=== PATIENT | male | born 1955 | race Caucasian/White ===

== ENCOUNTER 2016-10-17 10:27 | Inpatient (IN) ==
[2016-10-17] MEDS ORDERED: DUONEB (A & A) INH ONE (11:15)
[2016-10-17] MEDS ORDERED: SOLU-MEDROL IV ONE (11:15)
[2016-10-17 11:26] LABS: MANUAL DIFF NEEDED? NO
--- NOTE | 2016-10-17 11:28 | ED EKG INTERP ---
EKG Interpretation - EKG Time of EKG reading by physician:: 10:44 EKG Read and Signed by:: Elroy Galvez EKG Interpretation (*Must complete 3 of following elements*): Abnormal Rate: 102 (septal infarct, age undetermined; marked T wave abnormality, consider anterolateral ischemia; Prolonged QT) Rhythm: sinus tachycardia Attestation - Scribe Verification/Attestation Scribe:: Dilia Khan Acting as Scribe for:: Elroy Galvez Scribe documention review:: This chart was documented by a scribe and accurately reflects the service the provider performed and the decisions made by the provider.
[2016-10-17 11:32] LABS: BASO% 0.6 % (0.0-0.8); EOS# 0.02 X1000 (0.0-0.7); EOS% 0.2 % (0.0-10.0); HEMATOCRIT 40.3 % (42.0-52.0); HEMOGLOBIN 12.8 g/dL (14.0-18.0); IMM GRAN# 0.04 X1000 (0.0-0.04); IMM GRAN% 0.4 % (0.0-0.5); LYMPH# 1.47 X1000 (1.2-3.4); LYMPH% 16.4 % (20.5-51.1); MCH 27.4 PG (27-31); MCHC 31.8 g/dL (33-37); MCV 86.1 FL (81-99); MONO# 1.32 X1000 (0.11-0.59); MONO% 14.7 % (1.7-9.3); MPV 9.5 FL (7.4-10.4); NEUT% 67.7 % (42.2-75.2); PLT 413 X1000 (130-400); RBC 4.68 XMIL (4.7-6.1)
[2016-10-17 11:41] LABS: INR 1.02; PROTIME 10.8 Seconds (9.2-11.7); PTT 27.3 Seconds (22.0-36.0)
--- NOTE | 2016-10-17 11:56 | PROVIDER DOCUMENTATION ---
HPI-Respiratory General - General Chief Complaint: Shortness of Breath Stated Complaint: SHORT OF BREATH Time Seen by Provider: 10/17/16 11:02 Allergies/Adverse Reactions: Patient Allergies Allergy/AdvReac Type Severity Reaction Status Date / Time NSAIDS (Non-Steroidal Allergy Severe ABDOMINAL Verified 10/02/15 13:11 Anti-Inflamma PAIN Home Medications: Home Medication List Medication Instructions Recorded Confirmed Last Taken Type Omeprazole 40 mg PO QAM 07/01/15 10/17/16 10/17/16 09:00 History Ipratropium/Albuterol Sulfate 1 inh INH TID 10/17/16 10/17/16 10/17/16 09:00 History [Iprat-Albut 0.5-3(2.5) mg/3 ml] - History of Present Illness-Resp Nature of Presenting Problem: A 60 y/o M with PMH of COPD presented with 1 week of progressive cough and SOB, tried home inhalers with little help, no exertional dyspnes no PND and orthopnea, subjective fevers. Severity in ED: reports: mild Onset/Duration: reports: 1 week ago Timing: reports: still present Context: denies: recent foreign travel, insect bite (possible tick) Exposure: reports: unknown cause Cough Quality/Degree: reports: mild, dry cough Episode Frequency: chronic episodes Current Respiratory Medication Therapy: Initiated see nurses note Modifying Factors: improves with: albuterol inhaler, coughing, deep breath Associated Symptoms: reports: fever/chills, short of breath Similar Symptoms Previously?: Yes Recently seen or treated by another doctor?: No Review of Systems - Adult - REVIEW OF SYSTEMS - ADULT Constitutional: reports: no symptoms reported Eyes: reports: no symptoms reported Ears, Nose, Mouth & Throat: reports: no symptoms reported Cardiovascular: reports: no symptoms reported Respiratory: reports: no symptoms reported Gastrointestinal: reports: no symptoms reported Genitourinary: reports: no symptoms reported Musculoskeletal: reports: no symptoms reported Integumentary: reports: no symptoms reported Neurological: reports: no symptoms reported Psychiatric: reports: no symptoms reported Endocrine: reports: no symptoms reported Hematologic/Lymphatic: reports: no symptoms reported Allergic/Immunologic: reports: no symptoms reported All Other Systems: Reviewed and Negative Past History - Adult - PAST MEDICAL HISTORY-ADULT Review of Records: reports: Old Records Reviewed, Nursing Assessment Review, Medications Reviewed, Social history reviewed & non-contributory. Major Childhood Illnesses: reports: denies history Cardiovascular: reports: HTN Respiratory: reports: COPD Gastrointestinal: reports: denies history Obstetrical/Gynecological: reports: denies history Genitourinary: reports: denies history Musculoskeletal: reports: orthopedic injury (dislocated shoulder, 12/01/14) Neurological: reports: denies history Endocrine/Immune: reports: denies history Other Conditions: reports: denies history - PRIOR SURGERIES/PROCEDURES Surgical/Procedure History: reports: orthopedic (extremity) (right leg, left shoulder) - PRIOR HOSPITALIZATIONS Prior Hospitalizations: reports: none - IMMUNIZATION STATUS Childhood Immunizations: See Nurse Assessment Flu Vaccine: See Nurse Assessment - FAMILY HISTORY Family History: reviewed, not pertinent Physical Exam-General - PHYSICAL EXAM-ADULT Initial Vital Signs Reviewed: Yes - CONSTITUTIONAL General Appearance: appears well, alert, no apparent distress - EYES Eyes: PERRL/EOMI, pink conjunctivae, fundi clear, no AV nicking - HEAD, EARS, NOSE, MOUTH & THROAT HENMT: normocephalic/atraumatic, moist mucous membranes - NECK Neck: non-tender, full range of motion - RESPIRATORY Respiratory: chest non-tender, no pleuratic chest pain, no respiratory distress , rales, wheezing. 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05 PT 10.8 INR 1.02 PTT (Actin FS) 27.3 Sodium 137 Potassium 3.6 Chloride 94 L Carbon Dioxide 27 Anion Gap 16 BUN 8 Creatinine 0.8 Estimated GFR/1.73 m2 > 60 BUN/Creatinine Ratio 10 Glucose 121 H Calculated Osmolality 273 Calcium 8.7 L Magnesium 1.5 Total Bilirubin 0.53 AST 32 ALT 15 Alkaline Phosphatase 118 Creatine Kinase 367 H Creatine Kinase Index 1.3 CK-MB (CK-2) 4.70 Troponin T Gtq-K-Hadpjdpygmy Pept Total Protein 7.2 Albumin 3.2 L Globulin 4.0 Albumin/Globulin Ratio 0.8 10/17/16 10/17/16 11:00 11:00 WBC RBC Hgb Hct MCV MCH MCHC RDW Std Deviation Plt Count MPV Immature Gran % (Auto) Neut % (Auto) Lymph % (Auto) [place] % (Auto) Eos % (Auto) Baso % (Auto) Immature Gran # (Auto) Neut # (Auto) Lymph # (Auto) [place] # (Auto) Eos # (Auto) Baso # (Auto) PT INR PTT (Actin FS) Sodium Potassium Chloride Carbon Dioxide Anion Gap BUN Creatinine Estimated GFR/1.73 m2 BUN/Creatinine Ratio Glucose Calculated Osmolality Calcium Magnesium Total Bilirubin AST ALT Alkaline Phosphatase Creatine Kinase Creatine Kinase Index CK-MB (CK-2) Troponin T 0.086 Uae-C-Skflswhdwzq Pept 7467 H Total Protein Albumin Globulin Albumin/Globulin Ratio Orders Category Date Time Status Cardiac Monitoring DIRECTED Care 10/17/16 11:14 Active Saline Loc NOW Care 10/17/16 11:14 Active CHEST-2 VIEWS [RAD] Stat Exams 10/17/16 11:14 Taken CBC WITH ELECTRONIC DIFF [HEME] Stat Lab 10/17/16 11:00 Completed CK PROFILE [SP CHEM] Stat Lab 10/17/16 11:00 Completed COMPREHENSIVE METABOLIC PANEL [CHEM] Stat Lab 10/17/16 11:00 Completed MAGNESIUM [CHEM] Stat Lab 10/17/16 11:00 Completed PRO B-NATRIURETIC PEPTIDE Stat Lab 10/17/16 11:00 Completed PROTIME WITH INR [COAG] Stat Lab 10/17/16 11:00 Completed PTT [COAG] Stat Lab 10/17/16 11:00 Completed TROPONIN T Stat Lab 10/17/16 11:00 Completed Albuterol 2.5MG/Ipratrop 0.5MG [Duoneb (A & A)] Med 10/17/16 11:15 Discontinued 3 ml INH NOW ONE Furosemide [Lasix] Med 10/17/16 12:59 Discontinued 40 mg IV NOW ONE Methylprednisolone Sod Succ [Solu-Medrol] Med 10/17/16 11:15 Discontinued 125 mg IV NOW ONE Aerosol Treatments Routine Oth 10/17/16 11:15 Completed Aerosol Treatments Stat Oth 10/17/16 11:15 Completed EKG [EKG] Stat Ther 10/17/16 11:14 Ordered Vital Signs Temp Pulse Resp BP Pulse Ox 10/17/16 12:31 87 14 93/54 91 L 10/17/16 12:09 90 21 10/17/16 10:37 97.8 F 110 H 22 116/73 96 NSAIDS (Non-Steroidal Anti-Inflamma Allergy (Severe, Verified 10/02/15 13:11) ABDOMINAL PAIN SEVERE ABDOMINAL PAIN Omeprazole 40 mg PO QAM 07/01/15 Ipratropium/Albuterol Sulfate [Iprat-Albut 0.5-3(2.5) mg/3 ml] 1 inh INH TID Laboratory 10/17/16 10/17/16 10/17/16 11:00 11:00 11:00 WBC RBC Hgb Hct MCV MCH MCHC RDW Std Deviation Plt Count MPV Immature Gran % (Auto) Neut % (Auto) Lymph % (Auto) [place] % (Auto) Eos % (Auto) Baso % (Auto) Immature Gran # (Auto) Neut # (Auto) Lymph # (Auto) [place] # (Auto) Eos # (Auto) Baso # (Auto) PT 10.8 INR 1.02 PTT (Actin FS) 27.3 Sodium Potassium Chloride Carbon Dioxide Anion Gap BUN Creatinine Estimated GFR/1.73 m2 BUN/Creatinine Ratio Glucose Calculated Osmolality Calcium Magnesium Total Bilirubin AST ALT Alkaline Phosphatase Creatine Kinase Creatine Kinase Index CK-MB (CK-2) Troponin T 0.086 Wxn-B-Yknrdlwavex Pept 7467 H Total Protein Albumin Globulin Albumin/Globulin Ratio 10/17/16 10/17/16 11:00 11:00 WBC 8.96 RBC 4.68 L Hgb 12.8 L Hct 40.3 L MCV 86.1 MCH 27.4 MCHC 31.8 L RDW Std Deviation 19.5 H Plt Count 413 H MPV 9.5 Immature Gran % (Auto) 0.4 Neut % (Auto) 67.7 Lymph % (Auto) 16.4 L [place] % (Auto) 14.7 H Eos % (Auto) 0.2 Baso % (Auto) 0.6 Immature Gran # (Auto) 0.04 Neut # (Auto) 6.06 Lymph # (Auto) 1.47 [place] # (Auto) 1.32 H Eos # (Auto) 0.02 Baso # (Auto) 0.05 PT INR PTT (Actin FS) Sodium 137 Potassium 3.6 Chloride 94 L Carbon Dioxide 27 Anion Gap 16 BUN 8 Creatinine 0.8 Estimated GFR/1.73 m2 > 60 BUN/Creatinine Ratio 10 Glucose 121 H Calculated Osmolality 273 Calcium 8.7 L Magnesium 1.5 Total Bilirubin 0.53 AST 32 ALT 15 Alkaline Phosphatase 118 Creatine Kinase 367 H Creatine Kinase Index 1.3 CK-MB (CK-2) 4.70 Troponin T Bmv-A-Vomsoodezuo Pept Total Protein 7.2 Albumin 3.2 L Globulin 4.0 Albumin/Globulin Ratio 0.8 - EKG 1 EKG Interpretation (*Must complete 3 of following elements*): Abnormal Comments: sinus tachycardia, T inversion in antlateral leads - XRAY 1 XRAY Study: Chest (chronic changes and mild vascular congestion) Impression: See EMR Report - CONSULTS/PCP/HOSPITALIST Notification #1 *Consult/PCP/Hospitalist*: Dr Aguirre Time Discussed: 13:06 Consult Disposition: Admit Departure - Departure Time of Disposition Order: 13:06 DIAGNOSIS: Abnormal EKG, COPD exacerbation CHF exacerbation Qualifiers: Congestive heart failure type: unspecified congestive heart failure type Qualified Code(s): I50.9 - Heart failure, unspecified Disposition: ADMITTED INPATIENT 09 Certified Medical Emergency: Emergent Condition: Fair - Critical Care Note Comments: Pt has antlateral changes on EKG and progressive SOB with elevated BNP given lasix along with duoneb and solumedrol fro underlying COPD, admit for further evalaution
[2016-10-17 12:06] LABS: AGAP 16; ALBUMIN 3.2 g/dL (3.5-5.0); ALKALINE PHOSPHATASE 118 U/L (32-122); BUN 8 mg/dL (8-22); CALCIUM 8.7 mg/dL (8.8-10.2); CHLORIDE 94 mmol/L (98-107); COSMO 273; GOT 32 U/L (10-34); GPT 15 U/L (10-44); MAGNESIUM 1.5 mg/dL (1.5-2.7); POTASSIUM 3.6 mmol/L (3.5-5.1); SODIUM 137 mmol/L (136-145); TCO2 27 mmol/L (25-35); TOTAL BILIRUBIN 0.53 mg/dL (0.20-1.00); TOTAL PROTEIN 7.2 g/dL (6.3-8.3)
[2016-10-17 12:09] LABS: CK PROFILE 367 U/L (24-204)
[2016-10-17 12:29] LABS: CK INDEX 1.3 (0.0-2.5)
[2016-10-17] MEDS ORDERED: LASIX IV ONE (12:59)
--- NOTE | 2016-10-17 13:23 | Diag Imaging Result Document ---
PROCEDURE NAME: CHEST-2 VIEWS - 10/17/2016 2 VIEWS OF THE CHEST: FINDINGS: There is COPD and some scattered granulomata are present bilaterally. The lungs are not as well expanded as on 09/02/2016. There is increased density in the right apex which is somewhat diffuse and was also apparently present at the time of the previous study. There is an ill-defined opacity with bronchiectasis in this area on the previous CT of the chest dated 03/27/2015. IMPRESSION: COPD, chronic granulomatous changes and fibrosis. No evidence of acute disease.
[2016-10-17] MEDS ORDERED: SOLU-MEDROL IV SCH (14:15)
[2016-10-17] MEDS ORDERED: MAGNESIUM SULFATE 2 GM/S.W.I. 50 ML IV ONE (14:19)
[2016-10-17] MEDS ORDERED: ATIVAN IV PRN (14:20)
[2016-10-17] MEDS: NICODERM PATCH TD SCH (14:30)
[2016-10-17 15:02] LABS: ALLEN TEST NO; BLOOD TYPE ARTERIAL; DRAW SITE R BRACHIAL; METHB 1.5 % (0.0-1.5); O2(CT) 16.6 mL/dL (15.0-23.0); PCO2(98.6) 32 mmHg (35-45); PO2(98.6) 60 mmHg (60-100); SAMPLE BLOOD; SAO2 93.1 % (95.0-100.0); THB 13.2 g/dL (11.5-17.4); pH(98.6) 7.51 (7.35-7.45)
[2016-10-17 15:03] LABS: MODALITY ROOM AIR
[2016-10-17] MEDS: DUONEB (A & A) INH SCH ×3 (15:07→22:56)
[2016-10-17 15:10] LABS: HEMOGLOBIN A1C 5.7 % (4.8-6.0)
[2016-10-17] MEDS: LEVAQUIN 750 MG/D5W 150 ML IV SCH (15:22)
[2016-10-17] MEDS: TESSALON PO SCH (16:05)
[2016-10-17 18:15] LABS: CK INDEX 1.3 (0.0-2.5); CK-MB 4.55 ng/mL (0.0-5.0)
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
[2016-10-17] MEDS: MUCOMYST 20% INH SCH (19:29)
[2016-10-17] MEDS: SOLU-MEDROL IV SCH (20:07)
[2016-10-18 00:06] LABS: CK INDEX 1.4 (0.0-2.5); CK-MB 4.52 ng/mL (0.0-5.0)
[2016-10-18] MEDS: SOLU-MEDROL IV SCH ×3 (03:12→20:17)
[2016-10-18] MEDS: DUONEB (A & A) INH SCH ×6 (03:29→22:41)
[2016-10-18] MEDS: PROTONIX IV SCH (06:10)
[2016-10-18] MEDS: SODIUM CHLORIDE 0.9% INJ SCH (06:10)
[2016-10-18 07:07] LABS: HEMATOCRIT 34.3 % (42.0-52.0); HEMOGLOBIN 11.1 g/dL (14.0-18.0); MCH 27.5 PG (27-31); MCHC 32.4 g/dL (33-37); MCV 85.1 FL (81-99); MPV 9.9 FL (7.4-10.4); RBC 4.03 XMIL (4.7-6.1)
[2016-10-18 07:20] LABS: AGAP 12; BUN 12 mg/dL (8-22); CALCIUM 8.2 mg/dL (8.8-10.2); CHLORIDE 95 mmol/L (98-107); COSMO 271; MAGNESIUM 1.9 mg/dL (1.5-2.7); POTASSIUM 3.3 mmol/L (3.5-5.1); SODIUM 133 mmol/L (136-145); TCO2 26 mmol/L (25-35)
[2016-10-18] MEDS: NICODERM PATCH TD SCH (08:05)
[2016-10-18] MEDS: LOVENOX SUBQ SCH (08:06)
[2016-10-18] MEDS: TESSALON PO SCH ×3 (08:06→17:16)
[2016-10-18] MEDS: MUCOMYST 20% INH SCH ×2 (08:50→19:22)
[2016-10-18] MEDS ORDERED: KLOR-CON PO ONE (09:00)
[2016-10-18] MEDS: ROBITUSSIN-DM PO PRN ×3 (13:42→23:12)
--- NOTE | 2016-10-18 14:26 | PROGRESS NOTE ---
DATE: 10/18/2016 SUBJECTIVE: The patient states that he did not sleep well last night but otherwise has no other complaints. OBJECTIVE: Vital Signs: Temperature 98.1 degrees, blood pressure 141/82, heart rate 82, respirations 20, O2 saturation is 97% on 2 L nasal cannula. General: This is an elderly male, lying in bed, in no acute distress. Head: Normocephalic, atraumatic. Heart: S1, S2. Normal. Regular rate and rhythm. Lungs: Mild expiratory wheezes bilaterally. No crackles. No rales. Abdomen: Positive bowel sounds. Soft, nontender, nondistended. Extremities: No edema. No cyanosis. No calf tenderness. Peripheral pulses palpable. Neurologic: The patient is alert and oriented x3. No focal neurologic deficits noted. LABS: White blood cell count 10, hemoglobin 11, hematocrit 34, platelets 401, 000. Sodium 133, potassium 3.3, chloride 95, CO2 26, BUN 12, creatinine 0.7, glucose 195, calcium 8.2, magnesium 1.9. ASSESSMENT AND PLAN: 1. Acute chronic obstructive pulmonary disease exacerbation. Continue on IV steroids, bronchodilator therapy, and antibiotic therapy. 2. Tobacco dependence. The patient has been counseled about smoking cessation. Continue on the NicoDerm patch. 3. Hypokalemia. Will replace the patient's potassium. 4. Alcohol abuse. Monitor for alcohol withdrawal. prn ativan is available. 5. Deep vein thrombosis prophylaxis. Continue on Lovenox. 6. Will consult physical therapy. [facility]
[2016-10-18] MEDS: LEVAQUIN 750 MG/D5W 150 ML IV SCH (15:29)
[2016-10-18] MEDS: AMBIEN PO SCH (20:17)
[2016-10-18] MEDS ORDERED: VANCOMYCIN IV PER PHARMACY MISC SCH (21:45)
[2016-10-18] MEDS ORDERED: VANCOMYCIN 2 GM in NS 500 ML IV ONE (23:00)
[2016-10-19] MEDS: SOLU-MEDROL IV SCH ×3 (02:59→21:06)
[2016-10-19] MEDS: DUONEB (A & A) INH SCH ×5 (03:21→23:09)
[2016-10-19] MEDS: PROTONIX IV SCH (06:14)
[2016-10-19] MEDS: SODIUM CHLORIDE 0.9% INJ SCH (06:14)
[2016-10-19 07:12] LABS: HEMATOCRIT 35.3 % (42.0-52.0); HEMOGLOBIN 11.2 g/dL (14.0-18.0); MCH 27.2 PG (27-31); MCHC 31.7 g/dL (33-37); MCV 85.7 FL (81-99); MPV 9.8 FL (7.4-10.4); RBC 4.12 XMIL (4.7-6.1)
[2016-10-19 07:25] LABS: AGAP 13; BUN 12 mg/dL (8-22); CALCIUM 8.8 mg/dL (8.8-10.2); CHLORIDE 96 mmol/L (98-107); COSMO 273; POTASSIUM 3.9 mmol/L (3.5-5.1); SODIUM 135 mmol/L (136-145); TCO2 26 mmol/L (25-35)
--- NOTE | 2016-10-19 07:47 | EKG Report ---
Test Performed on : 10/17/2016 10:44:29 AM Test Reason : Chest Pain Blood Pressure : / mmHG Vent. Rate : 102 BPM Atrial Rate : 102 BPM P-R Int : 130 ms QRS Dur : 076 ms QT Int : 406 ms P-R-T Axes : 081 018 127 degrees QTc Int : 529 ms Sinus tachycardia. Septal infarct , age undetermined Marked T wave abnormality, consider anterolateral ischemia Prolonged QT Abnormal ECG When compared with ECG of 01-DEC-2014 00:41, QRS duration has decreased T wave inversion now evident in Anterolateral leads Unconfirmed Result
[2016-10-19] MEDS: LOVENOX SUBQ SCH (09:08)
[2016-10-19] MEDS: NICODERM PATCH TD SCH (09:08)
[2016-10-19] MEDS: TESSALON PO SCH ×3 (09:08→21:06)
[2016-10-19] MEDS: ROBITUSSIN-DM PO PRN ×3 (09:10→23:16)
[2016-10-19] MEDS: MUCOMYST 20% INH SCH ×2 (09:32→20:08)
[2016-10-19] MEDS: VANCOMYCIN 1,600 MG in NS 250 ML IV SCH (12:06)
[2016-10-19] MEDS: LEVAQUIN 750 MG/D5W 150 ML IV SCH (14:51)
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
[2016-10-19] MEDS: AMBIEN PO SCH (21:06)
[2016-10-20] MEDS: VANCOMYCIN 1,600 MG in NS 250 ML IV SCH ×2 (00:27→13:39)
[2016-10-20] MEDS: DUONEB (A & A) INH SCH ×6 (03:12→23:26)
[2016-10-20] MEDS: SOLU-MEDROL IV SCH ×3 (03:38→18:25)
[2016-10-20] MEDS: SODIUM CHLORIDE 0.9% INJ SCH (06:01)
[2016-10-20] MEDS: PROTONIX IV SCH (06:01)
[2016-10-20 07:48] LABS: AGAP 13; BUN 13 mg/dL (8-22); CALCIUM 8.3 mg/dL (8.8-10.2); CHLORIDE 99 mmol/L (98-107); COSMO 276; POTASSIUM 3.9 mmol/L (3.5-5.1); SODIUM 137 mmol/L (136-145); TCO2 25 mmol/L (25-35)
[2016-10-20] MEDS: MUCOMYST 20% INH SCH ×2 (08:22→19:39)
[2016-10-20] MEDS: TESSALON PO SCH ×3 (09:15→16:11)
[2016-10-20] MEDS: LOVENOX SUBQ SCH (09:15)
[2016-10-20] MEDS: NICODERM PATCH TD SCH (09:15)
--- NOTE | 2016-10-20 13:39 | PROGRESS NOTE ---
DATE: 10/20/2016 SUBJECTIVE: Mr. Mullen states he feels better. His breathing seems to be a little better. However, when I walked in the room, he was in a coughing spell, he choked on a little bit of Jell- O. In talking to him further, he has had some trouble with swallowing. He does not feel like his breathing is back to baseline, but it has improved. I do not hear any wheezing and no increased work of breathing at the present time. He just finished eating his lunch and was eating this Jell- O when I came in. OBJECTIVE: Vital Signs: Temperature 97.6. Pulse 80, respirations 22, blood pressure 149/96. Lungs: Are clear anterolateral. Cardiovascular: Regular rhythm and rate without murmur or S3. Abdomen: Soft. Skin: Warm and dry. : Good urine output. LABS: Reviewed from yesterday. ASSESSMENT AND PLAN: 1. Acute on chronic obstructive pulmonary disease exacerbation. Continue steroids, bronchodilator, antibiotic treatment at this time. 2. Tobacco dependence. He is on a nicotine patch. 3. Hypokalemia, supplemented. 4. History of alcohol abuse. Not looking for signs of alcohol withdrawal. We will be vigilant to look for that. 5. Deep vein prophylaxis. 6. He is complaining of dysphagia. We will see if we can get Gastroenterology to evaluate. Looking at his orders, I do not see anything to change at this point. He is on vancomycin, methylprednisone, Levaquin. I think we can probably stop his vancomycin.
[2016-10-20] MEDS: LEVAQUIN 750 MG/D5W 150 ML IV SCH (13:42)
--- NOTE | 2016-10-20 13:52 | Diag Imaging Result Document ---
PROCEDURE NAME: CT THORAX W/O CONTRAST - 10/17/2016 CT OF THE CHEST WITHOUT CONTRAST: COMPARISON: The current study is compared with that of 03/27/2015. FINDINGS: There is some increase in size of a node in the AP window which in short axis dimension is almost 8 mm in diameter compared to 5 mm previously. There is a 17 mm subcarinal node which has increased from 12 mm previously. There are calcified nodes in both radha. There is extensive coronary calcification. There is a large hiatal hernia. There are very small pleural fluid collections bilaterally. This was not previously present. There are fibrotic and bronchiectatic changes present anteriorly in the right upper lobe which were also present at the time of the previous study. There is some ill-defined opacity posteriorly in the right upper lobe which was not previously present. There is ill-defined opacity throughout much of the superior segment of the right lower lobe. There are patchy ill-defined opacities in both lower lobes more inferiorly. Most of this was not present at the time of the previous study. There is an area of poorly defined opacity posteriorly and laterally in the left upper lobe which was not previously present. There are scattered calcified granulomata. There are generalized emphysematous changes. IMPRESSION: Patchy pneumonia superimposed on fibrotic and emphysematous changes.
[2016-10-20] MEDS: AMBIEN PO SCH (21:09)
[2016-10-21] MEDS: SOLU-MEDROL IV SCH ×4 (03:04→17:00)
[2016-10-21] MEDS: DUONEB (A & A) INH SCH ×3 (03:41→11:35)
[2016-10-21] MEDS: CARAFATE LIQUID PO SCH ×5 (05:13→21:28)
[2016-10-21] MEDS: SODIUM CHLORIDE 0.9% INJ SCH (06:23)
[2016-10-21] MEDS: PROTONIX IV SCH (06:23)
[2016-10-21] MEDS: MUCOMYST 20% INH SCH (08:24)
[2016-10-21] MEDS: ICAR-C PO SCH ×2 (11:09→21:28)
[2016-10-21] MEDS: NICODERM PATCH TD SCH (11:09)
[2016-10-21] MEDS: LOVENOX SUBQ SCH (11:09)
[2016-10-21] MEDS: TESSALON PO SCH ×3 (11:10→16:59)
[2016-10-21] MEDS ORDERED: MYLICON DROPS (DOSE) MISC ONE (12:38)
[2016-10-21] MEDS: CARDIZEM IV ONE ×4 (13:17→15:37)
[2016-10-21] MEDS: CARDIZEM 100 MG/NS 100 ML IV SCH ×2 (13:51→18:19)
--- NOTE | 2016-10-21 13:57 | EKG Report ---
Test Performed on : 10/21/2016 1:35:03 PM Test Reason : EKG CHANGE Blood Pressure : / mmHG Vent. Rate : 115 BPM Atrial Rate : 113 BPM P-R Int : 000 ms QRS Dur : 078 ms QT Int : 290 ms P-R-T Axes : 000 034 025 degrees QTc Int : 401 ms Atrial fibrillation. with rapid ventricular response. Abnormal ECG When compared with ECG of 17-OCT-2016 10:44, Atrial fibrillation. has replaced Sinus rhythm. Criteria for Septal infarct are no longer present T wave inversion less evident in Anterolateral leads Confirmed by Leroy CHAVEZ, Ang Blanco ([id number]) on 10/23/2016 5:20:23 PM
--- NOTE | 2016-10-21 15:14 | OPERATIVE NOTE ---
PROCEDURE DATE: 10/21/2016 ADMITTING PHYSICIAN: Dr. Nikita Hagen, hospitalist. PROCEDURE: Esophagogastroduodenoscopy with esophageal dilation. PREOPERATIVE DIAGNOSES: 1. Dysphagia. 2. History of alcoholism. Continues to drink 6 beers a day, at least. 3. Chronic smoker. 4. Severe chronic obstructive pulmonary disease. Admitted with chronic obstructive pulmonary disease exacerbation and shortness of breath. 5. Mild anemia. 6. Reflux disease. 7. Noncompliance. POSTOPERATIVE DIAGNOSES: 1. Food in the mid and distal esophagus, which was partly suctioned out and partly pushed into the stomach body. 2. Ring noted at the distal esophagus.Dilated 54 [address] Dilator 3. Small hiatal hernia noted. 4. Food in the stomach noted, suggesting gastroparesis. 5. Mild gastritis. 6. Gastroparesis. 7. No evidence of pyloric obstruction or pyloric stenosis. 8. Normal duodenal bulb and 2nd portion. ESTIMATED BLOOD LOSS: None. COMPLICATIONS: 1. Transient hypoxemia requiring assisted ventilation, with full recovery. 2. Tachycardia, persistent, rate in 140s to 180s. Likely supraventricular tachycardia. Will need a Cardiology consultation. SPECIMEN: None. DESCRIPTION OF PROCEDURE: After informed consent from the patient, explaining the risks, benefits, indications, and alternatives, the patient was prepared for EGD. The risks of the procedure included infection, bleeding, pain, trauma to the surrounding structures, perforation, and were explained to the patient, among others, and he acknowledged understanding and agreed to proceed. The patient was brought to the OR and turned into the left lateral position. A bite block was placed. After adequate anesthesia care, the upper scope was introduced and advanced all the way to the 2nd portion of the duodenum. The esophagus was normal in the proximal third. The middle and distal thirds showed evidence of food debris, which was partly suctioned out and partly pushed into the stomach. There was evidence of a Schatzki ring at the GE junction. There was a small hiatal hernia measuring about 2 cm. The scope was then advanced into the stomach, which showed evidence of retained food in the stomach, and small to moderate amount of gastroparesis. The scope was advanced to the antrum, which showed evidence of mild gastritis. Retroflexion showed evidence of food in the stomach fundus and cardia and body and could not clearly see the area. The scope was then advanced into the bulb and 2nd portion of the duodenum, which appeared normal. The scope was withdrawn. At that time, we were suctioning the contents and the patient became hypoxemic and I pulled the scope out. At that time, the patient underwent assisted ventilation to help improve his oxygen saturations. He was noted to be tachycardic at that time. At that time, he had full recovery. Then we did dilation to 54 [place] of the Schatzki ring. Further, I performed a repeat EGD to evaluate the GE junction and there was still some small amount of food in the stomach as well as a small amount of food in the esophagus, which was pushed into the stomach. At that time, again the patient became hypoxemic and so we suctioned the air out and removed the scope. The patient underwent assisted ventilation and some management of tachycardia. The patient tolerated the procedure and is currently being taken to the PACU for recovery. RECOMMENDATIONS: 1. The patient will be on liquid diet for today. 2. Will call Cardiology consultation. 3. We will keep him on Protonix once daily for 3 months. 4. Patient was counseled to quit alcohol and smoking completely. 5. The patient should avoid any NSAIDs. 6. The patient will take small frequent meals. 7. We will start him on Reglan 5 mg QAC and QHS at bedtime and hold for side effects like tardive dyskinesia. 8. The patient will follow up with us in the clinic as needed. 9. We will keep him on bowel regimen as well. 10. Above plan was discussed with the patient and all questions were answered. [facility]
[2016-10-21] MEDS: LEVAQUIN 750 MG/D5W 150 ML IV SCH (15:28)
[2016-10-21] MEDS: CENTRUM SILVER PO SCH (15:37)
[2016-10-21 16:47] LABS: AGAP 17; BUN 13 mg/dL (8-22); CALCIUM 8.8 mg/dL (8.8-10.2); CHLORIDE 96 mmol/L (98-107); COSMO 280; MAGNESIUM 1.9 mg/dL (1.5-2.7); POTASSIUM 3.9 mmol/L (3.5-5.1); SODIUM 138 mmol/L (136-145); TCO2 25 mmol/L (25-35)
[2016-10-21] MEDS: REGLAN LIQUID PO SCH ×2 (16:59→21:28)
[2016-10-21] MEDS: LANOXIN IV SCH ×2 (16:59→21:28)
[2016-10-21] MEDS: MIRALAX PO SCH (17:00)
--- NOTE | 2016-10-21 17:15 | CONSULTATION ---
DATE OF CONSULTATION: 10/21/2016 REQUESTING PHYSICIAN: Shen Sotelo MD; Gastroenterology REASON FOR CONSULTATION: Tachycardia, atrial fibrillation with rapid response. HISTORY: Mr. Mullen is a 60-year-old male who was admitted to the hospital on October 17 because of increased dyspnea. He was initially diagnosed as having COPD exacerbation. Subsequently he reported dysphagia and difficulty swallowing. They consulted Dr. Sotelo from gastroenterology who took him to the endoscopy suite today, October 21. During the procedure, he encountered difficulty with the patient's oxygenation. They had to bag the patient and eventually he developed significant tachycardia which turned out to be atrial fibrillation with rapid response. They requested a consultation. EKG done at 1:35 p.m. shows atrial fibrillation, rapid response with a rate of 115 beats per minute. Initial EKG done at the time of admission to the hospital showed that he had been in sinus rhythm. The patient at the time of the procedure was found to have food in the mid and distal esophagus which was partly suctioned out and partly pushed into the stomach body. He had a ring noted at the distal esophagus. He had a small hiatal hernia, gastroparesis, normal duodenal bulb and second portion. They have given some instructions as to what to do with these findings. The patient at the time of my evaluation which is about 4 p.m. is eating already, Jell-O and some broth. He is feeling fine. He has no complaints. He says he does not have any history of heart disease. He does acknowledge having a history of COPD for some time and he has been followed at some point by Dr. Arroyo from pulmonary. PAST MEDICAL HISTORY: Negative for any cardiovascular condition that he is aware of. He has been taking some omeprazole and he has been using some inhaler at home. PAST SURGICAL HISTORY: Negative. FAMILY HISTORY: Noncontributory. SOCIAL HISTORY: He lives with a friend. He is not . He has no children. From previous records, they reported he has been homeless for some time. The patient smokes a little over a pack of cigarettes per day and he drinks about 6 beers a day. ALLERGIES: He has no allergies. REVIEW OF SYSTEMS: He has no issues with his balance, no falls. No previous heart disease. No other major issues. PHYSICAL EXAMINATION: Blood pressure is 126/84, temperature 97.5, pulse 93, respirations 16. The patient is awake, alert and in no distress. He is eating his food. HEENT: Unremarkable. Chest shows diffuse diminished breath sounds. I do not hear any wheezes. Heart sounds are irregularly/irregular. No gallop or murmur noted. Abdomen: Nontender. Soft. No hepatosplenomegaly. Extremities shows very good distal pulses. There is no peripheral edema. Neurologic: He moves all 4 extremities. LABORATORY DATA: Blood work; we do not have any lab work from today. I suspect they have ordered some. EKG done this afternoon shows atrial fibrillation with rapid response. No acute ischemic changes. At the time of initial presentation, they had done cardiac enzymes. The CPKs were 367, 364 and 326. The cardiac index for those 3 CPKs were negative at 1.3 and 1.4. He has had several troponins; 0.086, 0.075 and 0.048. Of note, his initial potassium was 3.6 and 3.3. His first EKG done in the hospital showed some T wave abnormalities across the precordial leads, raising concern for ischemia. IMPRESSION: 1. The patient developing atrial fibrillation with rapid response during a gastroenterology procedure with documented hypoxemia. Patient has underlying severe chronic obstructive pulmonary disease. 2. Question of coronary heart disease. 3. Long-term smoking. 4. Long-term alcohol user. RECOMMENDATIONS: We will keep the patient on Cardizem overnight. We will consider doing an echocardiogram in the morning. Further intervention will depend on his clinical course. At this point in time is very comfortable. He is eating and he seems to be in no distress whatsoever. Thank you for the opportunity to participate in his evaluation.
[2016-10-21] MEDS ORDERED: XYLOCAINE-MPF 2% ONE (17:31)
[2016-10-21] MEDS: AMBIEN PO SCH (21:31)
[2016-10-21] MEDS: DULCOLAX PR SCH (21:35)
[2016-10-22] MEDS: MUCOMYST 20% INH SCH ×3 (02:17→19:51)
[2016-10-22] MEDS: SOLU-MEDROL IV SCH ×2 (02:48→14:49)
[2016-10-22] MEDS: CARAFATE LIQUID PO SCH ×4 (02:48→20:04)
[2016-10-22] MEDS: LANOXIN IV SCH ×2 (04:38→10:02)
--- NOTE | 2016-10-22 07:01 | EKG Report ---
Test Performed on : 10/22/2016 06:50:24 AM Test Reason : atrial fibrillation Blood Pressure : / mmHG Vent. Rate : 095 BPM Atrial Rate : 075 BPM P-R Int : 000 ms QRS Dur : 078 ms QT Int : 394 ms P-R-T Axes : 000 026 -42 degrees QTc Int : 495 ms Atrial fibrillation. with premature ventricular or aberrantly conducted complexes. ST & T wave abnormality, consider anterior ischemia Prolonged QT Abnormal ECG When compared with ECG of 21-OCT-2016 13:35, (Unconfirmed) Nonspecific T wave abnormality now evident in Inferior leads T wave inversion more evident in Anterior leads Confirmed by Leroy CHAVEZ, Ang Blanco ([id number]) on 10/23/2016 5:22:19 PM
[2016-10-22 07:18] LABS: MANUAL DIFF NEEDED? NO
--- NOTE | 2016-10-22 07:28 | PROGRESS NOTE ---
DATE: 10/22/2016 SUBJECTIVE: Was resting comfortably. His monitor shows he still in atrial fibrillation. Breathing comfortably. OBJECTIVE: Vital signs: He remains afebrile. Temperature 97.8 degrees, pulse 97, respirations 22, blood pressure 131/79. Weight 172 pounds. Yesterday his weight was 160, so I question that. Intake and output: Urine output was over a liter. LAB: I reviewed electrolytes and CBC from yesterday. Will recheck those again today. ASSESSMENT AND PLAN: 1. The patient developed atrial fibrillation, rapid response during EGD. Had esophageal dilatation which was mild. Also has some gastroparesis. 2. Chronic obstructive pulmonary disease exacerbation which has improved. Air and gas exchange improving. Note the rate is controlled with atrial fibrillation and may have to explore whether we need to try and cardiovert him. 3. Long-term smoker, chronic obstructive pulmonary disease. 4. Long-term alcohol use. 5. Gastroparesis and esophageal stricture. He reported he was swallowing much better and feels much better. REVIEW OF HIS ORDERS: I do not see any change at this point. He is on Cardizem drip. Getting Reglan 5 mg p.o. q.a.c. and at bedtime, Carafate 1 g q.6 hours, methylprednisone 40 mg IV q.8 which I think we can cut that down to q.12. He is on Levaquin 750 mg IV q.24 hours and I think we can stop that.
[2016-10-22 07:31] LABS: BASO% 0.1 % (0.0-0.8); EOS# 0.01 X1000 (0.0-0.7); EOS% 0.1 % (0.0-10.0); HEMATOCRIT 37.2 % (42.0-52.0); HEMOGLOBIN 11.8 g/dL (14.0-18.0); IMM GRAN# 0.11 X1000 (0.0-0.04); IMM GRAN% 1.5 % (0.0-0.5); LYMPH# 0.63 X1000 (1.2-3.4); LYMPH% 8.4 % (20.5-51.1); MCH 27.3 PG (27-31); MCHC 31.7 g/dL (33-37); MCV 86.1 FL (81-99); MONO# 0.91 X1000 (0.11-0.59); MONO% 12.1 % (1.7-9.3); MPV 9.8 FL (7.4-10.4); NEUT% 77.8 % (42.2-75.2); PLT 466 X1000 (130-400); RBC 4.32 XMIL (4.7-6.1)
[2016-10-22 07:34] LABS: AGAP 15; ALBUMIN 3.1 g/dL (3.5-5.0); ALKALINE PHOSPHATASE 70 U/L (32-122); BUN 12 mg/dL (8-22); CALCIUM 8.7 mg/dL (8.8-10.2); CHLORIDE 96 mmol/L (98-107); COSMO 273; GOT 62 U/L (10-34); GPT 79 U/L (10-44); MAGNESIUM 1.9 mg/dL (1.5-2.7); POTASSIUM 4.9 mmol/L (3.5-5.1); SODIUM 136 mmol/L (136-145); TCO2 25 mmol/L (25-35)
[2016-10-22] MEDS: DUONEB (A & A) INH PRN ×3 (07:47→19:51)
[2016-10-22] MEDS: SODIUM CHLORIDE 0.9% INJ SCH (07:53)
[2016-10-22] MEDS: PROTONIX IV SCH (07:53)
[2016-10-22] MEDS: REGLAN LIQUID PO SCH ×5 (07:53→20:02)
--- NOTE | 2016-10-22 08:17 | Diag Imaging Result Document ---
PROCEDURE NAME: CHEST-PORTABLE - 10/22/2016 PORTABLE CHEST: COMPARISON: 10/17/2016. FINDINGS: The lungs are well expanded. The heart is not enlarged. The vessels are not distended. There are scattered granulomata. No pleural effusions identified. No consolidation. IMPRESSION: Stable chest.
[2016-10-22] MEDS: MIRALAX PO SCH (10:01)
[2016-10-22] MEDS: LOVENOX SUBQ SCH (10:01)
[2016-10-22] MEDS: CENTRUM SILVER PO SCH (10:01)
[2016-10-22] MEDS: ICAR-C PO SCH ×3 (10:01→20:12)
[2016-10-22] MEDS: TESSALON PO SCH ×3 (10:02→20:12)
--- NOTE | 2016-10-22 11:57 | PROGRESS NOTE ---
DATE: 10/22/2016 SUBJECTIVE: The patient is resting in bed. His swallowing is improved.Vitals: Temperature of 97 degrees, pulse rate of 95, respiratory rate 18, blood pressure 135/88, saturating 96% on nasal cannula. General Appearance: Thinly built, lying in bed, in no acute distress. HEENT: Mild pallor. No icterus. Neck: Supple. Abdomen: Soft and nontender, nondistended. Bowel sounds. Extremities: No cyanosis, clubbing. Neurologic: He is alert, awake, oriented. LABS: Hemoglobin and hematocrit 11.8, 37.2, white count of 7.5, platelet count of 466,000. Sodium 132, potassium 4.9, chloride 96, bicarb 25, anion gap of 15, BUN of 12, creatinine 0.7. Glucose of 126. Calcium is 8.7, magnesium 1.9. Total bilirubin is 0.3, AST 62, ALT 79, alkaline phosphatase is 70, total protein 6, albumin of 3.1. IMPRESSION AND PLAN: 1. Esophageal food impaction, esophageal ring small hiatal hernia and gastroparesis. We will continue him on Prilosec once daily on discharge. Will continue on Reglan 5 mg p.o. before meals and at bedtime and hold for side effects like tardive dyskinesia and the patient was also counseled to quit smoking and take small frequent meals. 2. Constipation. The patient will take MiraLAX once or twice daily. 3. COPD exacerbation, atrial fibrillation, RVR per the primary team. 4. Elevated liver enzymes. We will check hepatitis panel. 5. Above plan was discussed with the patient and all questions answered.
[2016-10-22] MEDS ORDERED: LOVENOX SUBQ ONE (12:15)
[2016-10-22 12:27] LABS: IRON SATURATION 31 %; TIBC 316 ug/dL; TOTAL IRON 97 ug/dL (53-167); UNBOUND IRON 219 ug/dL (112-346)
--- NOTE | 2016-10-22 12:29 | PROGRESS NOTE ---
DATE: 10/22/2016 CHIEF COMPLAINT: Shortness of breath, irregular heartbeat. SUBJECTIVE: Mr. Mullen feels fine. He is not having any chest pain. His breathing is getting better. Rhythm is still irregular. Rate is controlled. OBJECTIVE: Vital signs: Blood pressure is 126/74, temperature 97.4, pulse 78, respirations 15. General: He is awake, alert, follows commands. HEENT: Unremarkable. Chest: Diminished breath sounds with end-expiratory wheezes, very scattered. Cardiac: Heart sounds are irregularly irregular, no gallop or murmur. Abdomen: Nontender, soft, no masses, no hepatomegaly. Extremities: Good pulses, no edema. Neurological: Moves four extremities. BLOOD WORK: He has had 2 troponins drawn, one at 8:50 p.m. last night and one at 4:50 this morning. Both are negative. Sodium was 146, potassium 4.9, BUN and creatinine are normal. Hemoglobin 11.8, platelet count 466,000. IMAGING: His chest x-ray done today shows well-expanded lungs. IMPRESSION: 1. Patient who developed paroxysmal atrial fibrillation following GI procedure. He has advanced COPD. 2. He was admitted with COPD exacerbation. RECOMMENDATION: We will put the patient on enoxaparin 1 mg/kg twice a day and amiodarone 400 three times a day, watch him over the course of the night, and if he does not convert by tomorrow morning, we may consider proceeding with a direct current cardioversion. I explained this to the patient. He understood. He is in agreement.
[2016-10-22] MEDS ORDERED: CORDARONE PO SCH ×2 (13:00→21:00)
[2016-10-22] MEDS: CARDIZEM 100 MG/NS 100 ML IV SCH (14:48)
[2016-10-22] MEDS: AMBIEN PO SCH (20:03)
[2016-10-22] MEDS: DULCOLAX PR SCH (20:10)
[2016-10-22] MEDS ORDERED: LOVENOX SUBQ SCH (22:00)
[2016-10-23] MEDS: CARAFATE LIQUID PO SCH ×4 (01:26→19:37)
[2016-10-23] MEDS: SOLU-MEDROL IV SCH ×2 (03:45→14:50)
[2016-10-23] MEDS: ROBITUSSIN-DM PO PRN (04:04)
--- NOTE | 2016-10-23 05:55 | EKG Report ---
Test Performed on : 10/22/2016 4:07:37 PM Test Reason : Rhythm change Blood Pressure : / mmHG Vent. Rate : 071 BPM Atrial Rate : 071 BPM P-R Int : 148 ms QRS Dur : 086 ms QT Int : 432 ms P-R-T Axes : 066 025 078 degrees QTc Int : 469 ms Normal sinus rhythm. Anterior infarct , age undetermined Abnormal ECG When compared with ECG of 22-OCT-2016 06:50, (Unconfirmed) Sinus rhythm. has replaced Atrial fibrillation. Nonspecific T wave abnormality no longer evident in Inferior leads Confirmed by Leroy CHAVEZ, Ang Blanco ([id number]) on 10/23/2016 5:22:58 PM
[2016-10-23 06:05] LABS: AGAP 10; BUN 12 mg/dL (8-22); CALCIUM 8.2 mg/dL (8.8-10.2); CHLORIDE 99 mmol/L (98-107); COSMO 276; POTASSIUM 3.8 mmol/L (3.5-5.1); SODIUM 137 mmol/L (136-145); TCO2 28 mmol/L (25-35)
[2016-10-23] MEDS: SODIUM CHLORIDE 0.9% INJ SCH (06:12)
[2016-10-23] MEDS: PROTONIX IV SCH (06:12)
[2016-10-23] MEDS: REGLAN LIQUID PO SCH ×5 (06:12→19:37)
[2016-10-23] MEDS: MUCOMYST 20% INH SCH ×2 (07:21→20:14)
[2016-10-23] MEDS: DUONEB (A & A) INH PRN ×4 (07:21→20:14)
--- NOTE | 2016-10-23 07:56 | PROGRESS NOTE ---
DATE: 10/23/2016 SUBJECTIVE: Mr. Mullen did not sleep as well last night but his swallow is better. He is breathing is much better and I think he would like to go home today. OBJECTIVE: Vital Signs: Temp 97.4 degrees, pulse 85, respirations 17, blood pressure 173/87. Blood pressures have been between 126 and 173 over 84 to 96. Lungs: Clear. Anterolateral. Decreased breath sounds both bases. Cardiovascular: Regular rhythm and rate without murmur or S3. Abdomen: Soft. Skin: Warm and dry. General: Weight 172 pounds. Urine output 1300 mL. LAB: Reviewed from yesterday. CBC: Hematocrit stable. Electrolytes this morning: Sodium 137, potassium 3.8, chloride 99, bicarb 28, BUN 12, creatinine 0.7, calcium was 8.2. ASSESSMENT AND PLAN: 1. Patient developed paroxysmal atrial fibrillation following gastrointestinal procedure. He has advanced chronic obstructive pulmonary disease. 2. Advanced chronic obstructive pulmonary disease exacerbation is what he was admitted for and this is much better. We are going to need to determine whether he needs oxygen at home. The patient is on Lovenox 1 mg/kg twice a day. He is on amiodarone 400 mg 3 times a day. May consider direct current cardioversion. 3. Esophageal stricture. Recently dilated and developed paroxysmal atrial fibrillation during the procedure with rapid ventricular rate. Doing much better. 4. Review of his orders: Cordarone 400 mg t.i.d., Lovenox 80 mg subcutaneous q.12 hours, Tessalon 100 mg p.o. t.i.d., methylprednisone 40 mg IV q.12 hours, Carafate 1 g q.6 hours, Protonix 40 mg IV q.24 hours. He is on guaifenesin, Robitussin q.4 hours p.r.n.
--- NOTE | 2016-10-23 08:17 | PROGRESS NOTE ---
DATE: 10/23/2016 CHIEF COMPLAINT: Irregular heartbeat, shortness of breath. SUBJECTIVE: Mr. Mullen is complaining of right upper quadrant pain today. He has tender, hard subcutaneous tissue to palpation. He thinks that he slept on the monitor overnight and now is hurting. He received subcutaneous Lovenox yesterday. The possibility of rectus sheath hematoma cannot be ruled out. Of note, he is breathing fine, and his rhythm has converted back to sinus. OBJECTIVE: Vital signs: Blood pressure is 176/93, temperature 98.4, pulse 85, respirations 20. General: He is awake, alert. HEENT: Unremarkable. Chest: Diminished breath sounds without significant wheezing. Cardiac: Heart sounds regular and rhythmic, no gallop or murmur. Abdomen is very tender in the right upper quadrant where there is induration, firmness, tenderness, some warmth, however no obvious redness on the skin. IMPRESSION: 1. Patient who had paroxysmal atrial fibrillation, has converted to sinus rhythm. We put him on amiodarone yesterday. I am not sure if that really made the difference. However, he is back in sinus rhythm now. 2. Chronic obstructive pulmonary disease exacerbation. 3. Painful soft tissue, right upper quadrant, possible rectus sheath hematoma. RECOMMENDATION: I would get a CT of the thorax and upper abdomen to evaluate for this tender area. We will discontinue Lovenox. We will decrease amiodarone. The patient needs to be evaluated by primary service, and further intervention will depend on findings. From a cardiology viewpoint, no further intervention. The amiodarone might be discontinued within the next few days, and he needs to just follow up with his primary doctor. MTDD
[2016-10-23 08:25] LABS: BASO% 0.1 % (0.0-0.8); HEMATOCRIT 35.6 % (42.0-52.0); HEMOGLOBIN 11.2 g/dL (14.0-18.0); IMM GRAN# 0.29 X1000 (0.0-0.04); IMM GRAN% 1.4 % (0.0-0.5); LYMPH# 0.78 X1000 (1.2-3.4); LYMPH% 3.9 % (20.5-51.1); MANUAL DIFF NEEDED? YES; MCH 27.1 PG (27-31); MCHC 31.5 g/dL (33-37); MCV 86.2 FL (81-99); MONO# 2.09 X1000 (0.11-0.59); MONO% 10.4 % (1.7-9.3); MPV 10.1 FL (7.4-10.4); NEUT% 84.2 % (42.2-75.2); PLT 432 X1000 (130-400); RBC 4.13 XMIL (4.7-6.1)
[2016-10-23] MEDS: ICAR-C PO SCH ×2 (08:25→19:38)
[2016-10-23] MEDS: CORDARONE PO SCH ×2 (08:26→19:38)
[2016-10-23] MEDS: MIRALAX PO SCH (08:26)
[2016-10-23] MEDS: TESSALON PO SCH ×3 (08:26→19:38)
[2016-10-23] MEDS: CENTRUM SILVER PO SCH (08:26)
[2016-10-23 08:35] LABS: LYMPHS 8 % (21-51); MONO 8 % (1-9)
--- NOTE | 2016-10-23 08:45 | Diag Imaging Result Document ---
PROCEDURE NAME: CHEST-PORTABLE - 10/23/2016 PORTABLE CHEST: COMPARISON: 10/22/2016. FINDINGS: The lungs are well expanded. The heart is not enlarged. The pulmonary vessels are small. There are scattered granuloma. No pleural effusions identified. Mild increased markings in the upper outer right lung. IMPRESSION: 1. Emphysema. 2. Scattered granuloma. 3. Persistent infiltrate or fibrosis in the right upper lobe.
--- NOTE | 2016-10-23 08:55 | Diag Imaging Result Document ---
PROCEDURE NAME: CT THORAX W/O CONTRAST - 10/23/2016 CT THORAX WITHOUT CONTRAST: No contrast administered per request of the referring provider. A dose-reduction protocol was used. COMPARISON: 10/17/2016. FINDINGS: There are emphysematous changes. There is scarring with volume loss at the right apex. There is mild scarring at the left apex. There is scarring at the posterior right lower lobe. There is scarring with nodularity at the posterior and posterolateral left lower lobe which appears stable. There are multiple scattered calcified granulomas, and there are calcified hilar mediastinal lymph nodes from old granulomatous disease, similar to the previous exam. There is no consolidation, pleural effusion, or pneumothorax identified. There is no new or enlarged pulmonary nodular lesion identified. There are nonspecific small noncalcified mediastinal lymph nodes which are stable to slightly less prominent compared to previous exam. There is a moderate sized hiatal hernia which is stable. Included sections of upper abdomen show thickening of the right anterior upper abdominal wall which was not present on the previous exam. This has smooth appearance and may relate to hematoma. This involves the inferior most images of this exam and the full extent of this is not determined by this exam. The included images of the upper abdomen show no other acute abnormality. There are no calcified gallstones or pericholecystic inflammation seen. IMPRESSION: 1. Emphysematous changes. Bilateral pulmonary scarring, most prominent at the right apex, similar to the previous exam. Old granulomatous disease. 2. No evidence of acute disease in the thorax. There is a moderate sized hiatal hernia again seen. 3. Smooth thickening at visualized right anterior abdominal wall at the upper abdomen. This may relate to anterior abdominal wall hematoma at the right upper quadrant. If any further imaging evaluation is desired, CT abdomen could be considered.
[2016-10-23] MEDS ORDERED: DILAUDID IV ONE ×2 (10:46→11:00)
--- NOTE | 2016-10-23 10:54 | Diag Imaging Result Document ---
PROCEDURE NAME: ABDOMEN/PELVIS W/O CONTRAST - 10/23/2016 CT ABDOMEN AND PELVIS WITHOUT CONTRAST: No contrast administered per request of the referring provider. A dose-reduction protocol was used. COMPARISON: No comparison exam. FINDINGS: There is thickening of the right anterior abdominal wall from the upper abdomen to the pelvis. The thickening measures up to 4.7 cm. The normal thickness wall on the left measures 1.4 cm at this location. There are thickened areas of heterogeneously mildly increased density. This is compatible with rectus muscle hematoma on the right. There is a moderate sized hiatal hernia seen on the earlier CT thorax. There are no substantial abnormalities of the liver, spleen, adrenal glands, or pancreas identified. The bilateral kidneys are unremarkable. There is no renal stone or hydronephrosis identified. There are nonspecific small retroperitoneal lymph nodes. There are atherosclerotic calcifications noted. There are no calcified gallstones or pericholecystic inflammation identified. There is no evidence of bowel obstruction. There is uncomplicated colonic diverticulosis. There is no free air or abscess identified. There is trace free fluid in the posterior pelvis. IMPRESSION: Thickening of right anterior abdominal wall up to 4.7 cm, compatible with right rectus muscle hematoma.
[2016-10-23 11:26] LABS: HEPATITIS PROFILE ACUTE SEE COMMENTS (())
[2016-10-23] MEDS ORDERED: DILAUDID IV PRN (11:50)
[2016-10-23] MEDS: NORCO-7.5 PO PRN (19:38)
[2016-10-23] MEDS: AMBIEN PO SCH (19:38)
[2016-10-24] MEDS: AMBIEN PO SCH ×2 (01:30→21:07)
[2016-10-24] MEDS: CORDARONE PO SCH ×3 (01:31→21:08)
[2016-10-24] MEDS: DULCOLAX PR SCH ×2 (01:31→21:08)
[2016-10-24] MEDS: ICAR-C PO SCH ×3 (01:31→21:08)
[2016-10-24] MEDS: TESSALON PO SCH ×4 (01:32→21:08)
[2016-10-24] MEDS: REGLAN LIQUID PO SCH ×5 (01:32→21:07)
[2016-10-24] MEDS: CARAFATE LIQUID PO SCH ×4 (02:32→21:07)
[2016-10-24] MEDS: SOLU-MEDROL IV SCH ×2 (02:32→15:09)
[2016-10-24 05:38] LABS: AGAP 10; BUN 15 mg/dL (8-22); CHLORIDE 96 mmol/L (98-107); COSMO 272; MAGNESIUM 1.9 mg/dL (1.5-2.7); POTASSIUM 4.4 mmol/L (3.5-5.1); SODIUM 135 mmol/L (136-145); TCO2 29 mmol/L (25-35)
[2016-10-24] MEDS: SODIUM CHLORIDE 0.9% INJ SCH (06:18)
[2016-10-24] MEDS: PROTONIX IV SCH (06:18)
[2016-10-24] MEDS: DUONEB (A & A) INH PRN ×4 (07:40→19:56)
[2016-10-24] MEDS: MUCOMYST 20% INH SCH ×2 (07:40→19:55)
[2016-10-24] MEDS: MIRALAX PO SCH (08:11)
[2016-10-24] MEDS: CENTRUM SILVER PO SCH (08:12)
[2016-10-24] MEDS: NORCO-7.5 PO PRN ×2 (08:12→15:10)
--- NOTE | 2016-10-24 09:05 | PROGRESS NOTE ---
DATE: 10/24/2016 SUBJECTIVE: Mr. Mullen says he feels a little better, a little less sore. Breathing is comfortable. Got a little bit of sleep last night. OBJECTIVE: Vital signs: Temperature 98.7 degrees, pulse 90, respirations 20, blood pressure 157/77. HEENT: Pupils are equal. CVP less than 6 cm. Lungs: Clear in all lung najera. Decreased breath sounds, both bases. Abdomen: Soft. Extremities: No pedal edema. ASSESSMENT/PLAN: 1. Appears to be in sinus rhythm. Rate controlled. 2. He had an abdominal and pelvic CT yesterday. There is thickening of the right anterior abdominal wall up to 4.7 cm compatible with right rectus muscle hematoma, secondary from the Lovenox. 3. Chronic obstructive pulmonary disease, advanced stage. Breathing doing pretty good. We did a CT of his chest yesterday. There is emphysematous change, bilateral pulmonary scarring most prominent in the right apex on previous exam. No evidence of acute disease. Review of his orders: He is on amiodarone 200 mg b.i.d., Tessalon t.i.d. p.r.n., methylprednisone 40 mg IV q. 12 hours. There is some decreased Ambien 5 mg at bedtime, MiraLAX 17 g daily, Reglan 5 mg p.o. q.a.c. and at bedtime, and on diltiazem drip. I think that we could probably change him to p.o. Cardizem.
--- NOTE | 2016-10-24 11:18 | PROGRESS NOTE ---
DATE: 10/23/2016 SUBJECTIVE: Resting in bed. Swallowing is improved. He is eating soft diet. OBJECTIVE: Vital Signs: Temperature 97 degrees, pulse 95, respirations 18, blood pressure 135/80, O2 saturation 96% on nasal cannula. HEENT: No scleral icterus. No conjunctival pallor. Neck: Supple. Trachea midline. Heart and Lungs: Normal. Abdomen: Soft, nontender, nondistended. Bowel sounds present. Extremities: No cyanosis or clubbing. Neurologic: Alert, awake, oriented. LABORATORIES: Pretty much within normal limits. IMPRESSIONS AND PLAN: 1. Dysphagia secondary to esophageal food impaction. An esophageal ring has been resolved after esophageal dilation. Patient will be on Prilosec. If he has any problem, he will follow as an outpatient. 2. Constipation. 3. Chronic obstructive pulmonary disease. 4. Mild elevation of liver tests, which probably will not reveal any significant pathology. Hepatitis panel pending. The plan was discussed with the patient and he appears to follow the instructions, and we will see as an outpatient.
[2016-10-24] MEDS: CARDIZEM PO SCH ×3 (11:58→21:08)
--- NOTE | 2016-10-24 12:53 | PROGRESS NOTE ---
DATE: 10/24/2016 CHIEF COMPLAINT: Irregular heartbeat, shortness of breath, dysphagia. SUBJECTIVE: Mr. Mullen had an episode of intense abdominal wall pain yesterday. CT scan of the abdomen confirmed the finding of a rectus sheath hematoma. His pain has been treated with Dilaudid and heating pads. He is feeling better today. His rhythm has remained regular sinus. OBJECTIVE: Vital signs: Blood pressure is 157/77, temperature of 98.7, pulse 90, respirations 20. General: Patient is awake, alert, oriented. HEENT: Unremarkable. Chest : Diminished breath sounds. Slight wheezing. Cardiovascular: Heart sounds are regular, rhythmic. No gallop or murmur is noted. Abdomen: Abdomen is tender with induration at the level of the abdominal wall. Bowel sounds present. Extremities: Extremities show good pulses. No edema. Neurological exam: He moves four extremities. Follows commands. LABORATORY: Blood work: Sodium 135, potassium 4.4, BUN 15, creatinine 0.8. Magnesium is 1.9. His white count yesterday was 20,000, hemoglobin 11.2. IMPRESSION: Patient who presented with exacerbation of chronic obstructive pulmonary disease. This has improved. Subsequently complicated with dysphagia, and in turn during EGD for management of the dysphagia patient suffered transient hypoxemia, which in turn caused him to go into atrial fibrillation with rapid ventricular response. He converted from the atrial fibrillation; however, because we did not know for how long he was going to be in atrial fibrillation, we ordered Lovenox for him, and that may have precipitated the rectus sheath hematoma, which is the condition that is causing him to have pain and swelling of the abdominal wall. Hopefully this will be a self-limiting situation. The anticoagulant was discontinued immediately. He is on diltiazem and amiodarone at the present time. We are going to follow him and see how he does. Hopefully once his pain is reasonably under control, we might be able to send him home. Thank you again for the opportunity to participate in his evaluation. [facility]
[2016-10-25] MEDS: CARDIZEM PO SCH ×4 (02:52→20:36)
[2016-10-25] MEDS: SOLU-MEDROL IV SCH ×2 (02:52→16:05)
[2016-10-25] MEDS: CARAFATE LIQUID PO SCH ×4 (02:52→20:35)
[2016-10-25] MEDS: SODIUM CHLORIDE 0.9% INJ SCH (06:16)
[2016-10-25] MEDS: REGLAN LIQUID PO SCH ×4 (06:16→20:35)
[2016-10-25] MEDS: PROTONIX IV SCH (06:16)
[2016-10-25] MEDS: MUCOMYST 20% INH SCH ×2 (07:32→19:22)
[2016-10-25] MEDS: DUONEB (A & A) INH PRN ×4 (07:32→19:22)
--- NOTE | 2016-10-25 08:16 | PROGRESS NOTE ---
DATE: 10/25/2016 SUBJECTIVE: Mr. Mullen is still pretty sore on the right side. All-in-all feels he is doing better. He is swallowing and eating okay. Breathing he states is doing well. OBJECTIVE: Vital signs: Temperature 98.2 degrees, pulse 84, respirations 18, blood pressure 146/72. HEENT: Pupils are equal, round. Neck: CVP less than 6 cm. Lungs: Clear in all lung najera. Decreased breath sounds in both bases. Cardiovascular: Regular rhythm and rate without murmur or S3. Abdomen: Soft. He has the right rectus hematoma. Tender over the right upper abdominal quadrant, over the rectus sheath hematoma. Intake and output: Urine output 1400 mL. LAB: Reviewed from the 3rd. Hematocrit is stable 35. Will check that again tomorrow. Electrolytes from yesterday good. Check another chest x-ray in the morning. He is set up for home O2. Hopefully he can go home tomorrow. ORDERS: Reviewed his orders. I do not see any changes. On p.o. Cardizem. He is on amiodarone 200 mg b.i.d., Tessalon 100 mg p.o. t.i.d., methylprednisone 40 mg IV q.12, will cut that down to 20 mg q.12, Carafate 1 g q.6 hours, iron carbonyl and ascorbic acid 1 b.i.d. ASSESSMENT AND PLAN: 1. Chronic obstructive pulmonary disease exacerbation. We are using . He is doing better with that and will require home O2. Breathing status looks good. Check another chest x-ray in the morning. 2. Atrial fibrillation/paroxysmal atrial fibrillation which he went into getting an EGD and esophageal dilatation. Appears to be converting back to normal sinus rhythm. He is on amiodarone 200 mg b.i.d. and he is on Cardizem 60 mg q.6 hours. 3. Rectus hematoma. We have stopped his anticoagulant. Abdominal and pelvic CT: Right anterior abdominal wall thickening up to 4.7 cm, compatible with rectus muscle hematoma.
[2016-10-25] MEDS: TESSALON PO SCH ×3 (09:26→20:35)
[2016-10-25] MEDS: CORDARONE PO SCH ×2 (09:26→20:35)
[2016-10-25] MEDS: MIRALAX PO SCH (09:26)
[2016-10-25] MEDS: CENTRUM SILVER PO SCH (09:26)
[2016-10-25] MEDS: ICAR-C PO SCH ×2 (09:26→20:35)
--- NOTE | 2016-10-25 10:02 | PROGRESS NOTE ---
DATE: 10/25/2016 CHIEF COMPLAINT: Abdominal pain, irregular heartbeat, shortness of breath, dysphagia. SUBJECTIVE: Mr. Mullen, in general, seems to be improving. The pain in the abdomen is much less. OBJECTIVE: Vital signs show the following: Pulse 79, blood pressure 141/75, temperature 98.5, respirations 18. He is eating breakfast. He looks really well. HEENT: Unremarkable. Chest: Shows diminished breath sounds. No significant wheezes. Heart sounds are regular, rhythmic. I do not hear any gallop or murmur. Abdomen: Tender, firm over the right half of the abdomen, over the rectus sheath area. He is not as sore as he was a couple of days ago. Extremities: Show decreased pulses, no edema. Neurologic: He moves 4 extremities. IMPRESSION: 1. Patient who presented initially with exacerbation of COPD that has improved. 2. The patient complained of dysphagia during the course of his hospitalization and this had to be addressed by means of upper endoscopy. During the procedure of endoscopy, he became hypoxemic and that led to #3. 3. Atrial fibrillation, paroxysmal. This has resolved successfully. In order to manage his atrial fibrillation, we ordered Lovenox and amiodarone. He converted to sinus rhythm; however, as a result of the Lovenox, he developed #4. 4. Rectus sheath hematoma, very painful. This is a self-limiting condition. He is doing better. He is off anticoagulants. RECOMMENDATIONS: We will continue supportive care. He remains in sinus rhythm. We will seizure how he does. Probably, he will be going home in a day or 2. [facility]
[2016-10-25] MEDS: ROBITUSSIN-DM PO PRN ×2 (11:37→18:25)
[2016-10-25] MEDS: DULCOLAX PR SCH (20:35)
[2016-10-25] MEDS: AMBIEN PO SCH (20:36)
[2016-10-25] MEDS: NORCO-7.5 PO PRN (20:36)
[2016-10-26] MEDS: CARAFATE LIQUID PO SCH ×2 (03:13→09:41)
[2016-10-26] MEDS: SOLU-MEDROL IV SCH (03:13)
[2016-10-26] MEDS: CARDIZEM PO SCH ×2 (03:13→09:42)
[2016-10-26 05:44] LABS: AGAP 11; BUN 10 mg/dL (8-22); CHLORIDE 97 mmol/L (98-107); COSMO 280; MAGNESIUM 2.1 mg/dL (1.5-2.7); POTASSIUM 4.1 mmol/L (3.5-5.1); SODIUM 140 mmol/L (136-145); TCO2 32 mmol/L (25-35)
[2016-10-26] MEDS: SODIUM CHLORIDE 0.9% INJ SCH (06:02)
[2016-10-26] MEDS: PROTONIX IV SCH (06:02)
[2016-10-26] MEDS: REGLAN LIQUID PO SCH (06:02)
[2016-10-26] MEDS: DUONEB (A & A) INH PRN ×2 (07:17→10:57)
[2016-10-26] MEDS: MUCOMYST 20% INH SCH (07:18)
--- NOTE | 2016-10-26 08:52 | Diag Imaging Result Document ---
PROCEDURE NAME: CHEST-PORTABLE - 10/26/2016 PORTABLE CHEST DATED 10/26/2016 AT 0750 HOURS: FINDINGS: There is volume loss and opacification in the right upper lobe. The former was present on 10/23/2016, however, the density appears to have increased since the previous study. There are scattered granulomata bilaterally. IMPRESSION: Slightly worsened pneumonia right upper lobe.
[2016-10-26] MEDS: CORDARONE PO SCH (09:41)
[2016-10-26] MEDS: CENTRUM SILVER PO SCH (09:41)
[2016-10-26] MEDS: NORCO-7.5 PO PRN (09:41)
[2016-10-26] MEDS: TESSALON PO SCH (09:41)
[2016-10-26] MEDS: MIRALAX PO SCH (09:41)
[2016-10-26] MEDS: ICAR-C PO SCH (09:41)
[2016-10-26 11:46] VITALS: BP 151/75
--- NOTE | 2016-10-26 15:27 | PROGRESS NOTE ---
DATE: 10/26/2016 SUBJECTIVE: Patient is resting in bed. He is going to be discharged today. He denies any new complaints. He moved his bowels 2 days ago. He is tolerating food well. OBJECTIVE: Vital signs: Temperature 97.7 degrees, pulse rate of 78, respiratory rate 20, blood pressure 142/72, saturating 90% on nasal cannula. General Appearance: Thinly built, lying in bed, in no acute. HEENT: Mild pallor. No icterus. Neck: Supple. Abdomen : Soft, nontender, nondistended. Bowel sounds present. No guarding or rebound. Extremities: No cyanosis, clubbing. Neurologic: He is alert, awake, oriented. LABS: Hemoglobin and hematocrit are 11.2 and 35.6. Sodium 140, potassium 4.1, chloride 97, bicarb 32, anion gap 11, BUN of 10, creatinine 0.6, glucose of 132 , calcium is 8, magnesium 2.1. Hep C antibody was positive. PCR is currently pending. IMPRESSION AND PLAN: 1. Chronic obstructive pulmonary disease. Patient was encouraged to quit smoking completely. 2. Dysphagia status post esophageal dilation. Will continue on PPIs once daily for 3 months and then can transient to Zantac 150 mg bedtime. 3. Gastroparesis. Continue on Reglan and hold for side effects like tardive dyskinesia. We will continue on Reglan 5 mg before meals and at bedtime. 4. Constipation. Will continue on MiraLAX once or twice daily. 5. Atrial fibrillation with rapid ventricular response. Per Dr. Cunha. He is on Cardizem and amiodarone. 6. Anemia. Continue multivitamin with iron for now. 7. Further recommendation to pending hospital course. [facility]TDD
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
[2016-10-27 12:59] LABS: HCV BY PCR SEE COMMENTS (()); HCV CHARGE YES
== END 2016-10-26 13:20 | disposition home health service (06) | DRG 191 ==
LOC: ED 10:27 → 3N 14:43 → 3S 10-21 13:46
PROVIDERS: ATTEND Emergency Medicine
PROC: 0D758ZZ Dilation of Esophagus, Via Natural or Artificial Opening Endoscopic (ICD-10-PCS; principal; 2016-10-21 11:51)
DX: J44.1 Chronic obstructive pulmonary disease with (acute) exacerbation (principal); I97.791 Other intraoperative cardiac functional disturbances during other surgery; I48.0 Paroxysmal atrial fibrillation; I11.0 Hypertensive heart disease with heart failure; I50.9 Heart failure, unspecified; K22.2 Esophageal obstruction; K74.60 Unspecified cirrhosis of liver; K31.84 Gastroparesis; G89.29 Other chronic pain; M54.9 Dorsalgia, unspecified; K21.9 Gastro-esophageal reflux disease without esophagitis; K44.9 Diaphragmatic hernia without obstruction or gangrene; F17.210 Nicotine dependence, cigarettes, uncomplicated; R09.02 Hypoxemia; E87.6 Hypokalemia; K59.00 Constipation, unspecified; R74.8 Abnormal levels of other serum enzymes; M79.81 Nontraumatic hematoma of soft tissue; F10.20 Alcohol dependence, uncomplicated; Z91.19 Patient's noncompliance with other medical treatment and regimen; Z79.899 Other long term (current) drug therapy
CPT/HCPCS: 71010; 71020; 71250; 74176; 80048; 80053; 80074; 80202; 82550; 82553; 82805; 83036; 83540; 83550; 83735; 83880; 84484; 85025; 85027; 85610; 85730; 87040; 87070; 87077; 87205; 87522; 89220; 93005; 93010; 94640; 94760; 94761; 96365; 96375; 96376; 99406; C9113; J1160; J1170; J1650; J1940; J2060; J2920; J2930; J3370; J3475; J7040; J7050; 97116-GP; 97530-GP; S0164

== ENCOUNTER 2016-11-03 14:13 | Emergency (ER) ==
[2016-11-03 16:04] LABS: BASO% 0.1 % (0.0-0.8); EOS# 0.02 X1000 (0.0-0.7); EOS% 0.1 % (0.0-10.0); HEMATOCRIT 35.2 % (42.0-52.0); IMM GRAN# 0.12 X1000 (0.0-0.04); IMM GRAN% 0.6 % (0.0-0.5); LYMPH# 0.86 X1000 (1.2-3.4); LYMPH% 4.4 % (20.5-51.1); MANUAL DIFF NEEDED? NO; MCH 27.7 PG (27-31); MCHC 31.3 g/dL (33-37); MCV 88.7 FL (81-99); MONO% 4.6 % (1.7-9.3); MPV 9.6 FL (7.4-10.4); NEUT% 90.2 % (42.2-75.2); PLT 307 X1000 (130-400); RBC 3.97 XMIL (4.7-6.1)
[2016-11-03 16:28] LABS: AGAP 14; ALBUMIN 3.3 g/dL (3.5-5.0); ALKALINE PHOSPHATASE 145 U/L (32-122); AMYLASE 52 U/L (20-200); BUN 12 mg/dL (8-22); CALCIUM 8.2 mg/dL (8.8-10.2); CHLORIDE 94 mmol/L (98-107); COSMO 268; GOT 72 U/L (10-34); GPT 104 U/L (10-44); LIPASE 14 U/L (13-60); POTASSIUM 3.9 mmol/L (3.5-5.1); SODIUM 133 mmol/L (136-145); TCO2 25 mmol/L (25-35); TOTAL BILIRUBIN 1.13 mg/dL (0.20-1.00); TOTAL PROTEIN 6.5 g/dL (6.3-8.3)
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
[2016-11-03 18:11] VITALS: BP 171/93
[2016-11-03 18:35] LABS: INR 0.91; PROTIME 9.3 Seconds (9.2-11.7)
== END 2016-11-03 18:37 | disposition home or self-care (01) ==
LOC: ED 14:13
DX: K30 Functional dyspepsia (principal); R11.2 Nausea with vomiting, unspecified; R12 Heartburn; R13.10 Dysphagia, unspecified; R63.4 Abnormal weight loss; R06.2 Wheezing; R21 Rash and other nonspecific skin eruption; L90.5 Scar conditions and fibrosis of skin; I10 Essential (primary) hypertension; J44.9 Chronic obstructive pulmonary disease, unspecified; B19.20 Unspecified viral hepatitis C without hepatic coma; Z79.899 Other long term (current) drug therapy; S30.1XXA Contusion of abdominal wall, initial encounter
CPT/HCPCS: 80053; 82150; 83690; 85025; 85610